=== PATIENT | male | born 1960 | race Two or more races ===

== ENCOUNTER 2021-09-17 13:13 | Day surgery (SDC) | payer MEDICARE, MEDICAID ==
[~2021-09-17] VITALS: Ht 180.3 cm; Wt 111.4 kg
[2021-09-17 13:22] VITALS: BP 132/71
[2021-09-17] MEDS ORDERED: fentaNYL/PF 50MCG/1 ML 2ML syringe ONE ×2 (13:48)
[2021-09-17] MEDS ORDERED: MIDAZolam 1 MG/ML 5ML VIAL ONE (13:48)
[2021-09-17] MEDS ORDERED: FLUT16SP2 BOTHNARES (13:58)
[2021-09-17] MEDS ORDERED: CETI-91 PO (13:59)
[2021-09-17 15:06] VITALS: BP 122/86
[2021-09-17 15:09] VITALS: BP 135/79
[2021-09-17 15:19] VITALS: BP 134/71
[2021-09-17 15:29] VITALS: BP 156/84
[2021-09-17 15:37] VITALS: BP 132/82
== END 2021-09-17 17:36 | disposition home or self-care (01) ==
LOC: GI LAB 13:13
PROVIDERS: ATTEND Internal Medicine Gastroenterology
DX: R10.30 Lower abdominal pain, unspecified (principal); D12.0 Benign neoplasm of cecum; D12.5 Benign neoplasm of sigmoid colon; K64.8 Other hemorrhoids; Z87.891 Personal history of nicotine dependence
CPT/HCPCS: 45380; 45385; 99153; C1773; G0500; J2250; J3010; J7040; Z7512; 88305; 99152; A4620